=== PATIENT | male | born 1965 | race Caucasian/White ===

== ENCOUNTER 2017-05-17 02:13 | Emergency (ER) | payer OTHER ==
[2017-05-17 02:42] VITALS: BP 108/71; PULSE 68; TEMP 98.1; BMI 25.1
--- NOTE | 2017-05-17 03:07 | PDOC ---
History of Present Illness - General History Source: Patient Exam Limitations: No Limitations - History of Present Illness Initial Comments: 05/17/17 03:10 The patient is a 51 year old male, with a significant past medical history of anxiety and depression ( taking Trazodone, zoloft, seroquel, and xanax), who presents to the emergency department with difficulty sleeping and distressed that he has not been able to sleep this evening. He reports taking 4 Advil PM without help. The patient states he is becoming increasingly more irritable since not being able to sleep. The patient denies chest pain, shortness of breath, headache and dizziness. The patient denies fever, chills, nausea, vomit, diarrhea and constipation. The patient denies dysuria, frequency, urgency and hematuria. Allergies: NKDA PCP - Dr. Bahena <Eda Caballero - Last Filed: 05/17/17 03:35> - General History Source: Patient <Anastacio Carpenter - Last Filed: 05/17/17 04:40> - General Chief Complaint: Lethargy Stated Complaint: WEAKNESS Time Seen by Provider: 05/17/17 03:04 Past History <Eda Caballero - Last Filed: 05/17/17 03:35> - Past Medical History COPD: No Psychiatric Problems: Yes (anxiety, depression) - Immunization History Immunization Up to Date: Yes - Suicide/Smoking/Psychosocial Hx Smoking History: Current every day smoker Have you smoked in the past 12 months: Yes Information on smoking cessation initiated: No Hx Alcohol Use: No Drug/Substance Use Hx: No Substance Use Type: Alcohol <Anastacio Carpenter - Last Filed: 05/17/17 04:40> - Past Medical History Allergies/Adverse Reactions: Allergies Allergy/AdvReac Type Severity Reaction Status Date / Time No Known Allergies Allergy Verified 05/17/17 02:30 Home Medications: Ambulatory Orders Acetaminophen [Tylenol .Extra-Strength -] 500 mg PO Q6H #20 tablet 03/29/14 Albuterol Sulfate Inhaler - [Ventolin HFA Inhaler -] 2 inh PO Q4H #1 inh Alprazolam [Xanax -] 2 mg PO BID 03/29/14 Diphenhydramine [Benadryl -] 100 mg PO DAILY 03/29/14 Quetiapine Fumarate [Seroquel] 200 mg PO DAILY 03/29/14 Sertraline HCl [Zoloft -] 100 mg PO DAILY 03/29/14 Trazodone HCl 50 mg PO DAILY 05/17/17 Review of Systems - Review of Systems Able to Perform ROS?: Yes Comments:: 05/17/17 03:11 CONSTITUTIONAL: (+) inability to sleep. Absent: fever, chills, diaphoresis, generalized weakness , malaise, loss of appetite HEENT: Absent: rhinorrhea, nasal congestion, throat pain, throat swelling, difficulty swallowing, mouth swelling, ear pain, eye pain, visual Changes CARDIOVASCULAR: Absent: chest pain, syncope, palpitations, irregular heart rate, lightheadedness , peripheral edema RESPIRATORY: Absent: cough, shortness of breath, dyspnea with exertion, orthopnea, wheezing, stridor, hemoptysis GASTROINTESTINAL: Absent: abdominal pain, abdominal distension, nausea, vomiting, diarrhea, constipation, melena, hematochezia GENITOURINARY: Absent: dysuria, frequency, urgency, hesitancy, hematuria, flank pain, genital pain MUSCULOSKELETAL: Absent: myalgia, arthralgia, joint swelling SKIN: Absent: rash, itching, pallor HEMATOLOGIC/IMMUNOLOGIC: Absent: easy bleeding, easy bruising, lymphadenopathy, frequent infections ENDOCRINE: Absent: unexplained weight gain, unexplained weight loss, heat intolerance, cold intolerance NEUROLOGIC: Absent: headache, focal weakness or paresthesias, dizziness, unsteady gait, seizure, mental status changes, bladder or bowel incontinence PSYCHIATRIC: (+) irritability and inability to sleep. Absent: suicidal or homicidal ideation , hallucinations. <Eda Caballero - Last Filed: 05/17/17 03:35> *Physical Exam - Vital Signs Last Vital Signs Temp Pulse Resp BP Pulse Ox 98.1 F 68 16 108/71 98 05/17/17 02:25 05/17/17 02:25 05/17/17 02:25 05/17/17 02:25 05/17/17 02:25 - Physical Exam Comments: 05/17/17 03:12 GENERAL: Well developed, well nourished. Awake and alert. No acute distress. HEENT: Normocephalic, atraumatic. PERRLA, EOMI. No conjunctival pallor. Sclera are non- icteric. Moist mucous membranes. Oropharynx is clear. NECK: Supple. Full ROM. No JVD. Carotid pulses 2+ and symmetric, without bruits. No thyromegaly. No lymphadenopathy. CARDIOVASCULAR: Regular rate and rhythm. No murmurs, rubs, or gallops. Distal pulses are 2+ and symmetric. PULMONARY: No evidence of respiratory distress. Lungs clear to auscultation bilaterally. No wheezing, rales or rhonchi. ABDOMINAL: Soft. Non-tender. Non-distended. No rebound or guarding. No organomegaly. Normoactive bowel sounds. MUSCULOSKELETAL Normal range of motion at all joints. No bony deformities or tenderness. No CVA tenderness. EXTREMITIES: No cyanosis. No clubbing. No edema. No calf tenderness. SKIN: Warm and dry. Normal capillary refill. No rashes. No jaundice. NEUROLOGICAL: Alert, awake, appropriate. Cranial nerves 2-12 intact. Normoreflexic in the upper and lower extremities. Normal speech. Toes are down-going bilaterally. Gait is normal without ataxia. PSYCHIATRIC: Cooperative. Good eye contact. Appropriate mood and affect. <Eda Caballero - Last Filed: 05/17/17 03:35> - Vital Signs Last Vital Signs Temp Pulse Resp BP Pulse Ox 98.1 F 68 16 108/71 98 05/17/17 02:25 05/17/17 02:25 05/17/17 02:25 05/17/17 02:25 05/17/17 02:25 <Anastacio Carpenter - Last Filed: 05/17/17 04:40> Heart Score/ECG Review - ECG Intrepretation Comment:: 05/17/17 03:36 EKG was read by Dr. Carpenter at 3:15 Impression: Normal sinus rhythm <Eda Caballero - Last Filed: 05/17/17 03:35> ED Treatment Course - LABORATORY CBC & Chemistry Diagram: 05/17/17 03:25 05/17/17 03:25 <Eda Caballero - Last Filed: 05/17/17 03:35> - LABORATORY CBC & Chemistry Diagram: 05/17/17 03:25 05/17/17 03:25 <Anastacio Carpenter - Last Filed: 05/17/17 04:40> Medical Decision Making - Medical Decision Making 05/17/17 04:40 Dr. Carpenter: The scribe's documentation has been prepared under my direction and personally reviewed by me in its entirery. I confirm that the note above accurately reflects all work, treatment, procedures, and medical decision making performed by me. <Anastacio Carpenter - Last Filed: 05/17/17 04:40> *DC/Admit/Observation/Transfer - Attestations Scribe Attestion: 05/17/17 03:12 Documentation prepared by Eda Caballero, acting as medical technologist hematology for Anastacio Carpenter DO. <Eda Caballero - Last Filed: 05/17/17 03:35> - Discharge Dispostion Admit: No <Anastacio Carpenter - Last Filed: 05/17/17 04:40> Diagnosis at time of Disposition: Insomnia - Discharge Dispostion Disposition: HOME Condition at time of disposition: Stable - Referrals Referrals: ON STAFF,NOT [Primary Care Provider] - Manuel Bahena MD [Staff Physician] - - Patient Instructions Printed Discharge Instructions: DI for Insomnia Additional Instructions: Please follow up with Dr. Bahena to discuss your medications. Return if any problems - Post Discharge Activity
[2017-05-17 03:38] LABS: BASO % 0.9 % (0-2.0); HEMATOCRIT 39.7 % (35.4-49); HEMOGLOBIN 13.4 GM/dL (11.7-16.9); LYMPH % 32.4 % (8-40); MCH 30.2 pg (25.7-33.7); MCHC 33.8 g/dl (32.0-35.9); MEAN CELL VOLUME 89.3 fl (80-96); MEAN PLT VOLUME 7.7 fl (7.5-11.1); MONO % 8.6 % (3.8-10.2); NEUT % 56.1 % (42.8-82.8); PLATELET COUNT 183 K/MM3 (134-434); RBC 4.45 M/mm3 (4.00-5.60); RDW 13.1 % (11.9-15.9)
[2017-05-17 04:03] LABS: ALBUMIN 3.9 g/dl (3.4-5.0); ANION GAP 10 (8-16); BILIRUBIN,TOTAL 0.8 mg/dL (0.2-1.0); BLOOD UREA NITROGEN 19 mg/dL (7-18); CALCIUM 8.7 mg/dL (8.5-10.1); CHLORIDE 108 mmol/L (98-107); CO2 26 mmol/L (21-32); GLUCOSE,RANDOM 91 mg/dL (74-106); MAGNESIUM 2.5 mg/dL (1.8-2.4); SGOT/AST 20 U/L (15-37); SGPT/ALT 53 U/L (12-78); SODIUM 144 mmol/L (136-145); TOT PROT 6.6 g/dl (6.4-8.2)
[2017-05-17 04:06] LABS: ALK PHOS 72 U/L (45-117)
--- NOTE | 2017-05-17 16:28 | EKG ---
Test Reason : Blood Pressure : / mmHG Vent. Rate : 069 BPM Atrial Rate : 069 BPM P-R Int : 184 ms QRS Dur : 086 ms QT Int : 382 ms P-R-T Axes : 063 -26 038 degrees QTc Int : 409 ms NORMAL SINUS RHYTHM NORMAL ECG NO PREVIOUS ECGS AVAILABLE Confirmed by ABBY STAFFORD MD ([id number]) on 05/17/2017 4:27:51 PM Referred By: Confirmed By:ABBY STAFFORD MD
== END 2017-05-17 04:59 | disposition home or self-care (01) ==
LOC: SUPCPDRO 02:13 → JER 02:13
DX: G47.00 Insomnia, unspecified (principal)
CPT/HCPCS: 36415; 80053; 80307; 82550; 82553; 83735; 84484; 85025; 93005; 93010; 99282-25